=== PATIENT | female | born 1995 | race Caucasian/White ===

== ENCOUNTER → 2017-11-18 | Outpatient (CLI) | payer OTHER, BC ==
[~2017-11-18] MED LIST: AMOX500T10 PO; ATOV750O PO; HYDR200T38 PO; LEVO-85 PO; MULT-865 PO; PRE5 PO; PRED-317 PO; PRED-416 PO; PRED20TA6 PO; TACR1CAP15 PO; [UNRECOGNIZED DRUG - CODE] IV
[2017-11-18 14:20] LABS: PLATELET COUNT, AUTOMATED 397 K/uL (150-450)
== END ==
LOC: LAB 13:32
PROVIDERS: ATTEND Internal Medicine
DX: M32.9 Systemic lupus erythematosus, unspecified (principal)
CPT/HCPCS: 36415; 81001; 82040; 82247; 82310; 82374; 82435; 82565; 82570; 82947; 84075; 84132; 84155; 84295; 84450; 84460; 84520; 85025; 85651; 86140; 86160; 86225

== ENCOUNTER → 2017-12-25 | Outpatient (CLI) | payer OTHER, BC ==
[2017-12-25 17:22] LABS: PLATELET COUNT, AUTOMATED 368 K/uL (150-450)
== END ==
LOC: LAB 16:32
PROVIDERS: ATTEND Internal Medicine
DX: Z51.81 Encounter for therapeutic drug level monitoring (principal); Z79.899 Other long term (current) drug therapy
CPT/HCPCS: 36415; 82040; 82247; 82310; 82374; 82435; 82565; 82947; 84075; 84132; 84155; 84295; 84450; 84460; 84520; 85025

== ENCOUNTER → 2018-02-19 | Outpatient (CLI) | payer OTHER, BC ==
[~2018-02-19] MED LIST changes: -HYDR200T38 PO; +HYDR200T77 PO
[2018-02-19 17:56] LABS: PLATELET COUNT, AUTOMATED 373 K/uL (150-450)
== END ==
LOC: LAB 17:20
PROVIDERS: ATTEND Internal Medicine
DX: Z51.81 Encounter for therapeutic drug level monitoring (principal); M32.9 Systemic lupus erythematosus, unspecified
CPT/HCPCS: 36415; 81001; 82040; 82247; 82310; 82374; 82435; 82565; 82570; 82947; 84075; 84132; 84155; 84156; 84295; 84450; 84460; 84520; 85025; 85651; 86140; 86160; 86225

== ENCOUNTER → 2018-04-07 | Outpatient (REF) ==
[2018-04-07 08:40] LABS: LDL CHOLESTEROL 75 mg/dl
== END ==
DX: Z02.9 Encounter for administrative examinations, unspecified (principal)

== ENCOUNTER → 2018-05-18 | Outpatient (CLI) | payer OTHER, BC ==
[~2018-05-18] MED LIST changes: +FERR324T16 PO; +LIDO700A19 TOP
== END ==
LOC: LAB 21:06
PROVIDERS: ATTEND Emergency Medicine
DX: M85.80 Other specified disorders of bone density and structure, unspecified site (principal); R71.8 Other abnormality of red blood cells
CPT/HCPCS: 36415; 82306; 83540; 83550

== ENCOUNTER → 2018-07-05 | Outpatient (CLI) | payer OTHER, BC ==
[2018-07-05 15:34] LABS: PLATELET COUNT, AUTOMATED 369 K/uL (150-450)
== END ==
LOC: LAB 15:23
PROVIDERS: ATTEND Internal Medicine
DX: L93.0 Discoid lupus erythematosus (principal)
CPT/HCPCS: 36415; 82040; 82247; 82310; 82374; 82435; 82565; 82947; 84075; 84132; 84155; 84295; 84450; 84460; 84520; 85025

== ENCOUNTER → 2018-08-18 | Outpatient (CLI) | payer OTHER, BC ==
[2018-08-18 16:21] LABS: PLATELET COUNT, AUTOMATED 394 K/uL (150-450)
== END ==
LOC: LAB 15:51
PROVIDERS: ATTEND Emergency Medicine
DX: E61.1 Iron deficiency (principal)
CPT/HCPCS: 36415; 83540; 83550; 85025

== ENCOUNTER 2018-11-05 09:30 | Outpatient (RCR) | payer OTHER, BC ==
[2018-10-29 09:34] VITALS: BP 138/98
[2018-10-29] MEDS: NS(*) 0.9% 100 ML BAG 100 ML IVPB PRN (09:50)
[2018-10-29 10:37] VITALS: BP 132/90
[~2018-11-05 09:30] MED LIST changes: +BELI200A SUBQ; +DEXTROSE 5%(*) 100 ML BAG 100 ML IVPB PRN; +FERRIC CARBOXY 750 MG SDV 750 MG in NS(*) 0.9% 250 ML BAG 250 ML IVP ONE; +LIDOCAINE/SOD BICARB 8.4% SYR ID PRN; +PRE1 PO; +TACR1CAP13 PO
[2018-11-05 09:39] VITALS: BP 128/88
[2018-11-05] MEDS: NS(*) 0.9% 100 ML BAG 100 ML IVPB PRN (10:00)
[2018-11-05] MEDS ORDERED: FERRIC CARBOXY 750 MG SDV 750 MG in NS(*) 0.9% 250 ML BAG 250 ML IVP ONE (10:15)
[2018-11-24] MEDS ORDERED: ACET-3017 PO (15:48)
[2018-11-24] MEDS ORDERED: MISO200T59 PO (15:48)
[2018-11-24] MEDS ORDERED: DIA5 PO (15:48)
== END 2018-12-15 09:31 | disposition home or self-care (01) ==
LOC: SPU 09:30
PROVIDERS: ATTEND Emergency Medicine
DX: E61.1 Iron deficiency (principal)
CPT/HCPCS: 96365; J1439; J7050

== ENCOUNTER → 2019-01-22 | Outpatient (CLI) | payer OTHER, BC ==
[~2019-01-22] MED LIST changes: +ACET-3017 PO; -DEXTROSE 5%(*) 100 ML BAG 100 ML IVPB PRN; +DIA5 PO; -FERRIC CARBOXY 750 MG SDV 750 MG in NS(*) 0.9% 250 ML BAG 250 ML IVP ONE; -LIDOCAINE/SOD BICARB 8.4% SYR ID PRN; +MISO200T59 PO
== END ==
LOC: LAB 23:12
PROVIDERS: ATTEND Internal Medicine
DX: M32.13 Lung involvement in systemic lupus erythematosus (principal)
CPT/HCPCS: 36415; 80197

== ENCOUNTER → 2019-03-22 | Outpatient (CLI) | payer OTHER, BC ==
--- NOTE | 2019-03-22 14:56 | RADIOLOGY IMAGING REPORT ---
FACILITY: [facility] PATIENT NAME: Ivania Wall : 1995 MR: [id number] V: [id number] EXAM DATE: ORDERING PHYSICIAN: APOLONIA MCNEILL TECHNOLOGIST: Location: [facility] Patient: Ivania Wall : 1995 Visit/Account:[id number] Date of Sevice: 03/22/2019 DEXA Scan Clinical history: Osteopenia. Comparison: DEXA scan from 07/01/2017. LUMBAR SPINE: The bone mineral density (BMD) measured from L1-L4 correlates with a Z-score -1.1 and a T-score of - 1.0 which is Normal as defined by the World Health Organization. The corresponding risk of fracture in the lumbar spine is 2 times compared with a young adult reference population. This value has incr eased by 0.2 % since the prior study. More than 5% change is considered significant. HIP: Bone mineral density (BMD) measured in the Left total hip region correlates with a Z-score -1.4 and a T-score of -1.3 which is osteopenia as defined by the World Health Organization. The correspondin g risk of fracture in the hip is 2-3 times compared with a young adult reference population. The tota l hip value has decreased by 3.2 % since the prior study. More than 5% change is considered signific ant. Bone mineral density (BMD) measured in the Femoral Neck region measures 0.845 g/cm2. IMPRESSION: 1. Lumbar spine: Normal. There has been No significant change in the bone mineral density since the previous exam. 2. Left Hip: Osteopenia. There has been No significant change in the bone mineral density of the to brayan hip since the previous exam. 3. Femoral Neck: Bone Mineral Density is 0.845 g/cm2 The next DEXA scan of this patient should include the following sites: L1-L4 and the left hip. FRAX? WHO Fracture Risk Assessment Tool link: <http://www.shef.ac.uk/FRAX/tool.jsp?[email or web address]> PLEASE NOTE: 1) The World Health Organization defines low BMD as follows: T-score Normal > -1 Osteopenia < -1 and > -2.5 Osteoporosis < -2.5 without fractures Established osteoporosis < -2.5 with fractures 2) In general, you may wish to consider: Diagnosis Treatment Follow-up DEXA Normal BMD Prevention 2-3 years Osteopenia Prevention/therapy 1-2 years Osteoporosis Therapy Yearly 3) Fracture risk estimated from the T-score is more accurate for vertebral fractures (often spontane ous) than for hip fractures. Report Dictated By: Shai Bob MD at 03/22/2019 2:52 PM Report E-Signed By: Shai Bob MD at 03/22/2019 2:53 PM ALEKSANDRN:ELENA
== END ==
LOC: RAD 12:49
PROVIDERS: ATTEND Emergency Medicine
DX: M85.88 Other specified disorders of bone density and structure, other site (principal)
CPT/HCPCS: 77080

== ENCOUNTER → 2019-04-15 | Outpatient (REF) ==
[~2019-04-15] MED LIST changes: +AZIT-1 PO; +CETI10CA8 PO; +FLUT16SP19 NS; +Magic Mouthwash PO; +OLOOD OP
[2019-04-15 09:14] LABS: LDL CHOLESTEROL 93 mg/dl
== END ==
DX: Z02.9 Encounter for administrative examinations, unspecified (principal)

== ENCOUNTER → 2019-05-13 | Outpatient (CLI) | payer OTHER | LOC: LAB 18:31 | PROVIDERS: ATTEND Internal Medicine | DX: L93.0 Discoid lupus erythematosus (principal) | CPT/HCPCS: 36415; 80197 ==